=== PATIENT | male | born 1995 | race African-American/Black ===

== ENCOUNTER 2017-10-14 01:50 | Emergency (ER) | payer OTHER ==
--- NOTE | 2017-10-14 02:45 | ED ---
General Adult HPI - General Chief complaint: Extremity Injury, Upper Stated complaint: Wrist Injury Time Seen by Provider: 10/14/17 02:27 Source: patient, RN notes reviewed Mode of arrival: ambulatory Limitations: no limitations - History of Present Illness Initial comments: Patient 22-year-old male presented to the emergency room today with a chief complaint of an injury to the right wrist that occurred earlier today when he was playing [place]. He states that he tripped falling forward on her outstretched hand. Patient does admit to increased pain over right wrist. Patient denies any other complaints or symptoms. States worse with certain movements. Patient denies any recent fever, chills, shortness of breath, chest pain, back pain, abdominal pain, nausea or vomiting, numbness or tingling, headaches or visual changes, or any other complaints. - Related Data Previous Rx's Medication Instructions Recorded Ibuprofen [Motrin] 600 mg PO Q6HR PRN #20 day 10/14/17 Allergies Allergy/AdvReac Type Severity Reaction Status Date / Time No Known Allergies Allergy Verified 10/14/17 02:20 Review of Systems ROS Statement: Those systems with pertinent positive or pertinent negative responses have been documented in the HPI. ROS Other: All systems not noted in ROS Statement are negative. Past Medical History Past Medical History: No Reported History History of Any Multi-Drug Resistant Organisms: None Reported Past Surgical History: No Surgical Hx Reported Past Psychological History: No Psychological Hx Reported Smoking Status: Current every day smoker Past Alcohol Use History: None Reported Past Drug Use History: None Reported General Exam - General Exam Comments Initial Comments: General: The patient is awake and alert, in no distress, and does not appear acutely ill. Neck: The neck is supple, there is no tenderness or JVD. Musculoskeletal: Normal appearance and right wrist. Does show limited range of motion with flexion and extension due to pain. Distal right ulna and mild pain. Radial pulse 2+. Strength 5/5. Neurological: A&O x 3. CN II-XII intact, There are no obvious motor or sensory deficits. Coordination appears grossly intact. Speech is normal. Skin: Skin is warm and dry and no rashes or lesions are noted. Psychiatric: Normal mood and affect. Limitations: no limitations Course Vital Signs 10/14/17 02:18 Temperature 98.5 F Pulse Rate 55 L Respiratory 14 Rate Blood Pressure 167/98 O2 Sat by Pulse 99 Oximetry Medical Decision Making - Medical Decision Making X-ray reviewed all and with attending physician . No obvious fracture appreciated on x-ray. Patient has been placed in Sam wrap for comfort and compression. Advised to sleep with this on to use when up and moving around. Advised to use ibuprofen for pain and follow-up with orthopedics in 7- 10 days for symptoms persist for repeat x-ray. Disposition Clinical Impression: Wrist sprain Disposition: HOME SELF-CARE Condition: Good Instructions: Wrist Sprain (ED) Additional Instructions: Please use Sam wrap on up and moving around but do not sleep with it on. please continue to ice elevate the affected area at least 4 times daily. Please use ibuprofen for pain. Please follow-up in 7-10 days with orthopedics if symptoms persist for repeat x-rays as discussed. Please return to emergency room for any other concerns. Prescriptions: Ibuprofen [Motrin] 600 mg PO Q6HR PRN #20 day PRN Reason: Pain Is patient prescribed a controlled substance at d/c from ED?: No Referrals: None,Stated [Primary Care Provider] - 1-2 days Ganesh Smith DO [Doctor of Osteopathic Medicine] - 1-2 days Time of Disposition: 03:29
[2017-10-14] MEDS ORDERED: IBUPROFEN 600 MG STARTER PACK 4 TAB BTL PO STA (03:28)
--- NOTE | 2017-10-14 03:32 | XR ---
EXAM: XR Right Wrist, 2 Views CLINICAL HISTORY: ITS.REASON XR Reason: Pain TECHNIQUE: Frontal and lateral views of the right wrist. COMPARISON: None FINDINGS: Bones/joints: No acute fracture or dislocation identified. Probable bone island in the distal right radius. Soft tissues: Normal. IMPRESSION: No acute abnormality identified.
[2017-10-14 03:42] VITALS: BP 147/90; PULSE 58; RESP 18; TEMP 98
== END 2017-10-14 03:41 | disposition home or self-care (01) ==
LOC: EC 01:50
DX: S63.501A Unspecified sprain of right wrist, initial encounter (principal); F17.200 Nicotine dependence, unspecified, uncomplicated; W01.0XXA Fall on same level from slipping, tripping and stumbling without subsequent striking against object, initial encounter; Y93.67 Activity, basketball
CPT/HCPCS: 99283